=== PATIENT | male | born 1955 | race Caucasian/White ===

== ENCOUNTER → 2016-03-13 | Outpatient (CLI) | payer OTHER ==
[~2016-03-13] MED LIST: ACET-789 PO; LISI10TA; LISI40TA PO; PANT40TA2 PO; SIMV40TA4 PO; SUCR1TAB PO; VITAMINS
--- OUTSIDE RECORDS SUMMARY | 2016-03-13 08:46 | XMS REPORT | Continuity of Care Document ---
Author Author [facility] Organization [facility] Address Unknown Phone Unavailable Care Team Providers Care Supervisor Personnel Clerks Name Role Phone JR REVELES DO PCP Insurance Providers Payer Name Policy Number Subscriber Name [facility] [id number] Brant Bahena 18 Self / Same As Patient Advance Directives Directive Response Recorded Date/Time Advance Directives No 11/17/15 2:04pm Health Care Power of Agriscience Technology Instructor No 11/17/15 2:04pm Organ Donor Yes 11/17/15 2:04pm Resuscitation Status Full Code 11/17/15 2:04pm Problems No problem information available. Medications Current Home Medications Medication Dose Units Route Directions Days/Qty Instructions Start Date Lisinopril 40 Mg 40 Mg Oral Daily 11/17/15 Simvastatin 40 Mg 40 Mg Oral Bedtime 11/17/15 Sucralfate 1 Gm 1 Gm Oral Before Meals And At Bedtime 11/17/15 Acetaminophen With Codeine 1 Each 1 Each Oral Every 6 Hours as needed for Pain 11/17/15 Past Home Medications Medication Directions Ordered Status Lisinopril (Zestril) 10 Mg Tablet, 11/21/08 Discontinued Vitamins , 11/21/08 Discontinued Social History No social history. Hospital Discharge Instructions No hospital discharge instructions. Plan of Care Discharge Date 11/17/15 2:17pm Prescriptions See Medication Section Functional Status No functional status results. Allergies, Adverse Reactions, Alerts No known allergies. Immunizations No immunization records. Vital Signs Acute Vital Signs Vital Response Date/Time Height (Feet) 5 feet 11/17/2015 2:04pm Height (Inches) 11.00 inches 11/17/2015 2:04pm Height (Calculated Centimeters) 180.022724 cm 11/17/2015 2:04pm Weight (Pounds) 330 pounds 11/17/2015 2:04pm Weight (Ounces) 6.0 oz 11/17/2015 2:04pm Weight (Calculated Grams) 566185.581 gm 11/17/2015 2:04pm Weight (Calculated Kilograms) 149.892657 kilograms 11/17/2015 2:04pm Calculated BMI 46.02 11/17/2015 2:04pm Results No known relevant diagnostic tests, laboratory data and/or discharge summary. Procedures No known history of procedures. Encounters Encounter Location Arrival/Admit Date Discharge/Depart Date Attending Provider Departed Clinic [facility] 11/17/15 5:59am 11/17/15 2: 17pm JOHANA RODRIGUEZ MD
--- NOTE | 2016-03-15 09:22 | ECHOCARDIOGRAPHY REPORT ---
PROCEDURE PHYSICIAN: JES JUDGE DATE OF PROCEDURE: 03/13/2016 TWO DIMENSIONAL ECHOCARDIOGRAM REPORT PRIMARY PHYSICIAN: OTHER PHYSICIAN: REFERRING PHYSICIAN: Dr. Boothe ORDERING PHYSICIAN: INDICATION FOR THE PROCEDURE: 1. Coronary artery disease. 2. Hypertension. MEASUREMENTS DERIVED VALUES LV DIAMETER (LAX) NORMALS NORMALS Diastolic 5.5 (3.6-5.2) Eject. Fract. 50% (60%+/-6%) Systolic (2.3-3.9) Diastolic Vol. % Shortening (0.22-0.42) Systolic Vol. Aortic Root IVS THICKNESS Diastolic 1.2 (0.6-1.1) LVPW THICKNESS Diastolic 1.2 (0.6-1.1) LA DIAMETER Systolic 5.1 (2.1-3.7) FINDINGS: 1. Technical quality is good. 2. The left ventricle is normal in size with mild to moderate left ventricular hypertrophy noted diffusely. Systolic function appeared to be normal. Estimated ejection fraction 60%. Diastolic dysfunction is suggested by Doppler. Improvement compared to the study of 2008. 3. The left atrium is dilated. No clot or thrombus were seen within the left atrium. 4. The right atrium and right ventricle are normal in size. No clot or thrombus were seen within the right side. 5. Mitral valve is normal in morphology with mild mitral regurgitation noted by color Doppler flow. Doppler across the mitral valve showed equalization of E and A, which is suggestive of diastolic dysfunction. 6. Aortic valve is trileaflet with normal opening and closing pattern. No significant aortic stenosis or regurgitation was seen. 7. Tricuspid valve is normal in morphology, mild tricuspid regurgitation noted by color Doppler flow. Doppler across tricuspid valve estimated pulmonary artery pressure of 17+ right atrial pressure. 8. Pulmonic valve is functioning normally. 9. No pericardial effusion. IN CONCLUSION: 1. Normal left ventricular size with mild to moderate left ventricular hypertrophy. Normal systolic function. Anterior wall is erwin normally. Estimated ejection fraction 60%. Diastolic dysfunction is suggested by Doppler. 2. Left atrial dilatation. 3. Mild mitral and tricuspid regurgitation. 4. Estimated pulmonary artery pressure of 25 mmHg. Job ID: [id number] Dictated Date: 03/14/2016 15:02:49 Beam Worker Date: 03/15/2016 09:18:50 / hieu
== END ==
LOC: CARD 08:43
PROVIDERS: ATTEND Physician Assistant
DX: I25.10 Atherosclerotic heart disease of native coronary artery without angina pectoris (principal); I10 Essential (primary) hypertension; E78.2 Mixed hyperlipidemia; E66.9 Obesity, unspecified
CPT/HCPCS: 93306

== ENCOUNTER → 2016-04-17 | Outpatient (CLI) | payer OTHER ==
--- OUTSIDE RECORDS SUMMARY | 2016-04-17 10:23 | XMS REPORT | Continuity of Care Document ---
Author Author [facility] Organization [facility] Address Unknown Phone Unavailable Care Team Providers Care Cell Tower Climber Name Role Phone JR REVELES DO PCP Insurance Providers Payer Name Policy Number [facility]scriber Name [facility] [id number] Brant Bahena 18 Self / Same As Patient Advance Directives Directive Response Recorded Date/Time Advance Directives No 11/17/15 2:04pm Health Care Power of Cytology Teacher No 11/17/15 2:04pm Organ Donor Yes 11/17/15 [...] 11.00 inches 11/17/2015 2:04pm Height (Calculated Centimeters) 180.342936 cm 11/17/2015 2:04pm Weight (Pounds) 330 pounds 11/17/2015 2:04pm Weight (Ounces) 6.0 oz 11/17/2015 2:04pm Weight (Calculated Grams) 902982.581 gm 11/17/2015 2:04pm Weight (Calculated Kilograms) 149.505695 kilograms 11/17/2015 2:04pm Calculated BMI 46.02 11/17/2015 2:04pm Results No known relevant diagnostic tests, laboratory data and/or discharge summary. Procedures No known history of procedures. Encounters Encounter Location Arrival/Admit Date Discharge/Depart Date Attending Provider Departed Clinic [facility] 11/17/15 5:59am 11/17/15 2: 17pm JOHANA RODRIGUEZ MD
--- NOTE | 2016-04-17 12:06 | STRESS TEST ---
PROCEDURE PHYSICIAN: JES JUDGE DATE OF PROCEDURE: 04/17/2016 EXERCISE STRESS ECHOCARDIOGRAM REPORT: REFERRING PHYSICIAN: Dr. Boothe BASELINE HEART RATE: 73 BASELINE BLOOD PRESSURE: 120/80 BASELINE EKG: Sinus rhythm with no ischemic changes. IN SUMMARY: The patient started exercising with a baseline heart rate, blood pressure, EKG mentioned above. At minute 1, he started having intermittent right bundle branch block progressed into right bundle branch block, persisted during test. He was able to exercise for a total of 3 minutes on standard Sameer protocol, achieving maximum heart rate of 152, which is 95% of maximum expected heart rate. Early in recovery, the patient went back to intermittent right bundle branch block and then back to his baseline. Blood pressure at peak exercise was 200/120. Oxygen saturation was 93%. Echocardiographic images were acquired and reviewed in the parasternal long axis, parasternal short axis, apical 4 chamber and apical 2 chamber views. Review of the images showed normal left ventricular size with normal contractility. No ischemic changes. IN CONCLUSION: 1. Poor exercise tolerance a total of 3 minutes on standard Sameer protocol. Total of 4.6 METs, achieving 95% of maximum expected heart rate. 2. Intermittent right bundle branch block noted early in exercise and early in recovery, persistent right bundle branch block induced by exercise. 3. Severe hypertensive response to exercise, returned to baseline during recovery. Normal echocardiographic images with no ischemic changes. Job ID: [id number] Dictated Date: 04/17/2016 11:37:21 Carpentry Supervisor Date: 04/17/2016 12:00:17 / hieu
== END ==
LOC: CARD 10:21
PROVIDERS: ATTEND Internal Medicine Cardiovascular Disease
DX: I25.10 Atherosclerotic heart disease of native coronary artery without angina pectoris (principal); I10 Essential (primary) hypertension; E78.2 Mixed hyperlipidemia; E66.9 Obesity, unspecified

== ENCOUNTER → 2016-05-15 | Outpatient (CLI) | payer OTHER ==
--- OUTSIDE RECORDS SUMMARY | 2016-05-15 09:28 | XMS REPORT | Continuity of Care Document ---
Author Author [facility] Organization [facility] Address Unknown Phone Unavailable Care Team Providers Care Soap Inspector Name Role Phone JR REVELES DO PCP Insurance Providers Payer Name Policy Number Subscriber Name [facility] [id number] Brant Bahena 18 Self / Same As Patient Advance Directives Directive Response Recorded Date/Time Advance Directives No 11/17/15 2:04pm Health Care Power of Pulley Worker No 11/17/15 2:04pm Organ Donor Yes 11/17/15 [...] 11.00 inches 11/17/2015 2:04pm Height (Calculated Centimeters) 180.186422 cm 11/17/2015 2:04pm Weight (Pounds) 330 pounds 11/17/2015 2:04pm Weight (Ounces) 6.0 oz 11/17/2015 2:04pm Weight (Calculated Grams) 663838.581 gm 11/17/2015 2:04pm Weight (Calculated Kilograms) 149.435965 kilograms 11/17/2015 2:04pm Calculated BMI 46.02 11/17/2015 2:04pm Results No known relevant diagnostic tests, laboratory data and/or discharge summary. Procedures No known history of procedures. Encounters Encounter Location Arrival/Admit Date Discharge/Depart Date Attending Provider Departed Clinic [facility] 11/17/15 5:59am 11/17/15 2: 17pm JOHANA RODRIGUEZ MD
--- NOTE | 2016-05-15 09:56 | Diagnostic Imaging Report ---
PROCEDURE: CT abdomen and pelvis without contrast. TECHNIQUE: Multiple contiguous axial images were obtained through the abdomen and pelvis without the use of intravenous contrast. INDICATION: Left flank pain. COMPARISON: None. DISCUSSION: The visualized lung bases are unremarkable. Normal heart size. No pleural or pericardial fluid. The gallbladder is surgically absent. Postoperative changes of the stomach are noted. The liver, spleen, pancreas, and adrenal glands are unremarkable. No hydronephrosis. Nonobstructing right renal calculi measuring up to 6 mm. No ureteral stone or obstruction otherwise identified on this noncontrast exam. Urinary bladder and prostate are unremarkable. The appendix is normal. The large and small bowel loops appear within normal limits. Fat-containing ventral hernia with the hernia defect measuring 2.4 cm. No ascites or pathologically enlarged lymph nodes identified. No acute osseous abnormality identified. IMPRESSION: Nonobstructing right renal calculi. No hydronephrosis or ureteral stone identified. Dictated by: Dictated on workstation # [id number]
== END ==
LOC: RAD 09:25
PROVIDERS: ATTEND Nurse Practitioner Family
DX: R10.32 Left lower quadrant pain (principal)
CPT/HCPCS: 74176

== ENCOUNTER → 2017-11-05 | Outpatient (CLI) | payer OTHER ==
--- NOTE | 2017-11-05 12:33 | Diagnostic Imaging Report ---
INDICATION: Left flank pain. FINDINGS: Supine images of the abdomen are obtained. There is mild gaseous distention of small and large bowel however no transition point seen to indicate obstruction. There are calcifications projecting over the kidneys bilaterally with the largest on the right reaching 0.7 cm in the upper pole region. Upper pole calcification on the left reaches approximately 0.4 cm. No definite ureteric stone is identified however there is a small calcified phlebolith in the left hemipelvis. IMPRESSION: Bilateral renal calculi, greater on the right without other acute abnormality seen in the abdomen. Dictated by: Dictated on workstation # [id number]
== END ==
LOC: RAD 11:26
PROVIDERS: ATTEND Nurse Practitioner Family
DX: N20.0 Calculus of kidney (principal)
CPT/HCPCS: 74018

== ENCOUNTER 2019-07-05 21:48 | Emergency (ER) | payer OTHER ==
[~2019-07-05] VITALS: Ht 177 cm; Wt 151.6 kg
[~2019-07-05 21:48] MED LIST changes: +SIMV40TA25 PO; -SIMV40TA4 PO
[2019-07-05] MEDS ORDERED: NS IV 1000 ML 1,000 ML IV SCH (22:10)
[2019-07-05] MEDS ORDERED: ONDANSETRON 4 MG/2 ML (SDV) Z0FRAN IVP ONE ×2 (22:15→23:00)
[2019-07-05] MEDS ORDERED: fentaNYL INJECTION 100 MCG/2 ML AMP IVP ONE (22:15)
--- NOTE | 2019-07-05 22:16 | ED Back Pain ---
General Stated Complaint: LOWER BACK PAIN Source of Information: Patient Exam Limitations: No Limitations History of Present Illness Date Seen by Provider: July 05, 2019 Time Seen by Provider: 22:05 Initial Comments Patient presents ER by private conveyance with chief complaint of pain in his right flank and back radiating down to his right groin since sometime this afternoon. He has a history of kidney stones and says this is consistent with it. He denies fevers chills cough shortness of breath. He's having some nausea but no vomiting. He took a Tylenol 3 couple hours ago with no relief of pain. Use the Tylenol 3 for chronic back and shoulder pain. He is known to [facility] for primary care. Allergies and Home Medications Allergies Coded Allergies: No Known Drug Allergies (Verified , 11/19/15) Home Medications Acetaminophen with Codeine 1 Each Tablet, 1 EACH PO Q6H PRN for PAIN, (Reported) Cephalexin 500 Mg Capsule, 500 MG PO BID Prescribed by: GO FREITAS on 07/05/192257 Hydrocodone/Acetaminophen 1 Each Tablet, 1-2 EACH PO Q4H PRN for PAIN- BREAKTHROUGH Prescribed by: GO FREITAS on 07/05/192257 Lisinopril 40 Mg Tablet, 40 MG PO DAILY, (Reported) Ondansetron 4 Mg Tab.rapdis, 4 MG PO Q6H PRN for NAUSEA-1ST LINE Prescribed by: GO FREITAS on 07/05/192257 Pantoprazole Sodium 40 Mg Tablet.dr, 40 MG PO DAILY Prescribed by: JOHANA RODRIGUEZ on 11/19/15 1254 Simvastatin 40 Mg Tablet, 40 MG PO HS, (Reported) Sucralfate 1 Gm Tablet, 1 GM PO ACHS, (Reported) Tamsulosin HCl 0.4 Mg Cap, 0.4 MG PO DAILY Prescribed by: GO FREITAS on 07/05/192257 Patient Home Medication List Home Medication List Reviewed: Yes Review of Systems Constitutional: No chills, No diaphoresis EENTM: No ear discharge, No ear pain Respiratory: No cough, No short of breath Cardiovascular: No chest pain, No edema Gastrointestinal: No abdominal pain, No constipation, No nausea, No vomiting Genitourinary: see HPI; No discharge, No dysuria Musculoskeletal: see HPI, back pain; No joint pain All Other Systems Reviewed Negative Unless Noted: Yes Past Tcwbamz-Ohqezt-Wpxekd Hx Patient Social History Alcohol Use: Denies Use Recreational Drug Use: No Smoking Status: Never a Smoker Recent Foreign Travel: No Contact w/Someone Who Travel: No Immunizations Up To Date Date of Pneumonia Vaccine: Dec 18, 2012 Past Medical History Reproductive Disorders: No Physical Exam Vital Signs Vital Signs - First Documented 07/05/19 22:06 Temp 36.5 Pulse 83 Resp 20 B/P (MAP) 143/89 (107) O2 Delivery Room Air Capillary Refill : Height, Weight, BMI Height: 5'11.00" Weight: 330lbs. 6.0oz. 149.688998ue; 46.02 BMI Method: General Appearance: Moderate Distress, Obese HEENT: TMs Normal, Pharynx Normal, Moist Mucous Membranes Neck: Full Range of Motion, Normal Inspection Cardiovascular: Regular Rate, Rhythm, Normal Peripheral Pulses Respiratory: Lungs Clear, Normal Breath Sounds, No Accessory Muscle Use, No Respiratory Distress Peripheral Pulses: 2+ Dorsalis Pedis (R), 2+ Left Dors-Pedis (L) Gastrointestinal: Normal Bowel Sounds, Non Tender, Soft Back: No Vertebral Tenderness, CVA Tenderness (R) Extremity: Normal Capillary Refill, Non Tender, No Calf Tenderness Neurologic/Psychiatric: Alert, Oriented x3 Skin: Normal Color, Warm/Dry Progress/Results/Core Measures Results/Orders Lab Results Laboratory Tests Test 07/05/19 22:10 Range/Units White Blood Count 12.6 H 4.3-11.0 10^3/uL Red Blood Count 4.82 4.35-5.85 10^6/uL Hemoglobin 12.0 L 13.3-17.7 G/DL Hematocrit 38 L 40-54 % Mean Corpuscular Volume 80 80-99 FL Mean Corpuscular Hemoglobin 25 25-34 PG Mean Corpuscular Hemoglobin Concent 31 L 32-36 G/DL Red Cell Distribution Width 16.4 H 10.0-14.5 % Platelet Count 224 130-400 10^3/uL Mean Platelet Volume 9.6 7.4-10.4 FL Neutrophils (%) (Auto) 65 42-75 % Lymphocytes (%) (Auto) 22 12-44 % Monocytes (%) (Auto) 9 0-12 % Eosinophils (%) (Auto) 3 0-10 % Basophils (%) (Auto) 0 0-10 % Neutrophils # (Auto) 8.2 H 1.8-7.8 X 10^3 Lymphocytes # (Auto) 2.8 1.0-4.0 X 10^3 Monocytes # (Auto) 1.2 H 0.0-1.0 X 10^3 Eosinophils # (Auto) 0.4 H 0.0-0.3 10^3/uL Basophils # (Auto) 0.0 0.0-0.1 10^3/uL Sodium Level 139 135-145 MMOL/L Potassium Level 4.0 3.6-5.0 MMOL/L Chloride Level 106 98-107 MMOL/L Carbon Dioxide Level 19 L 21-32 MMOL/L Anion Gap 14 5-14 MMOL/L Blood Urea Nitrogen 23 H 7-18 MG/DL Creatinine 1.08 0.60-1.30 MG/DL Estimat Glomerular Filtration Rate > 60 BUN/Creatinine Ratio 21 Glucose Level 133 H 70-105 MG/DL Calcium Level 8.5 8.5-10.1 MG/DL Corrected Calcium 8.6 8.5-10.1 MG/DL Total Bilirubin 0.4 0.1-1.0 MG/DL Aspartate Amino Transf (AST/SGOT) 17 5-34 U/L Alanine Aminotransferase (ALT/SGPT) 18 0-55 U/L Alkaline Phosphatase 133 40-136 U/L Total Protein 7.1 6.4-8.2 GM/DL Albumin 3.9 3.2-4.5 GM/DL My Orders Orders - GO FREITAS Ed Iv/Invasive Line Start (07/05/19 22:10) Ns Iv 1000 Ml (Sodium Chloride 0.9%) (07/05/19 22:10) Ct Abd/Pelvis Wo(Kidney Stone) (07/05/19 22:10) Cbc With Automated Diff (07/05/19 22:10) Comprehensive Metabolic Panel (07/05/19 22:10) Ua Culture If Indicated (07/05/19 22:10) Fentanyl Injection (Sublimaze Injection (07/05/19 22:15) Ondansetron Injection (Zofran Injectio (07/05/19 22:15) Ketorolac Injection (Toradol Injection) (07/05/19 23:00) Rx-Hydrocodone/Apap 5-325 Mg (Rx-Vicodin (07/05/19 23:00) Hydromorphone Injection (Dilaudid Inject (07/05/19 23:00) Ondansetron Injection (Zofran Injectio (07/05/19 23:00) Medications Given in ED Current Medications Medications Dose Ordered Sig/Mary Route Start Time Stop Time Status Last Admin Dose Admin Acetaminophen/ Hydrocodone Bitart 1 ea Q4H PRN PO 07/05/19 23:00 07/05/19 23:09 1 EA Fentanyl Citrate 75 mcg ONCE ONCE IVP 07/05/19 22:15 07/05/19 22:16 DC 07/05/19 22:18 75 MCG Hydromorphone HCl 0.5 mg ONCE ONCE IV 07/05/19 23:00 07/05/19 23:02 DC 07/05/19 23:07 0.5 MG Ketorolac Tromethamine 15 mg ONCE ONCE IVP 07/05/19 23:00 07/05/19 23:02 DC 07/05/19 23:06 15 MG Ondansetron HCl 4 mg ONCE ONCE IVP 07/05/19 22:15 07/05/19 22:16 DC 07/05/19 22:17 4 MG Ondansetron HCl 8 mg ONCE ONCE IVP 07/05/19 23:00 07/05/19 23:02 DC 07/05/19 23:07 8 MG Vital Signs/I&O 07/05/19 22:06 Temp 36.5 Pulse 83 Resp 20 B/P (MAP) 143/89 (107) O2 Delivery Room Air Progress Progress Note #1: Time: 22:15 Progress Note Patient says is unable to produce any urine at this time. Plans to go ahead and give him a dose of fentanyl, Zofran liter of fluids and get a CT of his abdomen and pelvis. Some basic labs ordered. He has aseptic vital signs. Suspect kidney stone. Progress Note #2: Time: 22:47 Progress Note Patient's pain is not completely controlled. We can give him some hydrocodone as well as a small dose of 15 mg Toradol. He has had cardiac bypass in the past. He is not on blood thinners. We would only do a one-time NSAID. Progress Note #3: Time: 23:34 Progress Note Patient's pain was much better under control so he called his son a modicum give him a ride. Diagnostic Imaging Diagonstic Imaging: CT (without IV contrast) Plain Films/CT/US/NM/MRI: abdomen, pelvis Comments 3-4 mm ureteral calculi about 1 cm above the ureterovesical junction. Nonobstructing renal stones noted on the right. Reviewed: Reviewed Night Hawk Study, Reviewed by Me Departure Impression Primary Impression: Ureteral calculus, right Disposition: 01 HOME, SELF-CARE Condition: Stable Departure-Patient Inst. Decision time for Depature: 23:00 Referrals: NO,LOCAL PHYSICIAN (PCP/Family) Primary Care Physician Patient Instructions: Kidney Stones (DC), How to Strain Your Urine Add. Discharge Instructions: Hydrocodone one to 2 tablets every 4 hours as needed for pain control. Ondansetron one tablet every 6 hours as needed for nausea or vomiting. Drink lots of fluids. Keflex one capsule twice a day for the next 7 days to prevent urinary tract infection. Flomax one capsule at night for the next 7 days to help pass the kidney stone. Strain your urine to try and capture the stone. It is not unusual to have pain and nausea for up to one to 2 days after passing a kidney stone. If you're unable to pass it by Sunday then please call Dr. Howard, urology for further intervention. Scripts Tamsulosin HCl (Flomax) 0.4 Mg Cap 0.4 MG PO DAILY for 7 Days, #7 CAP 0 Refills Prov: GO FREITAS 07/05/19 Cephalexin (Keflex) 500 Mg Capsule 500 MG PO BID for 7 Days, #14 CAP 0 Refills Prov: GO FREITAS 07/05/19 Hydrocodone/Acetaminophen (Hydrocodone-Acetamin 5-325 mg) 1 Each Tablet 1-2 EACH PO Q4H PRN for PAIN-BREAKTHROUGH, #20 TAB 0 Refills Prov: GO FREITAS 07/05/19 Ondansetron (Ondansetron Odt) 4 Mg Tab.rapdis 4 MG PO Q6H PRN for NAUSEA-1ST LINE, #12 TAB 0 Refills Prov: GO FREITAS 07/05/19 GO FREITAS July 05, 2019 22:16
[2019-07-05 22:30] LABS: BASOPHILS % (AUTO) 0 % (0-10); EOSINOPHILS # (AUTO) 0.4 10^3/uL (0.0-0.3); EOSINOPHILS % (AUTO) 3 % (0-10); HEMATOCRIT 38 % (40-54); LYMPHOCYTES # (AUTO) 2.8 X 10^3 (1.0-4.0); LYMPHOCYTES % (AUTO) 22 % (12-44); MEAN CORPUSCULAR HEMOGLOBIN 25 PG (25-34); MEAN CORPUSCULAR HGB CONC 31 G/DL (32-36); MEAN CORPUSCULAR VOLUME 80 FL (80-99); MEAN PLATELET VOLUME 9.6 FL (7.4-10.4); MONOCYTES # (AUTO) 1.2 X 10^3 (0.0-1.0); MONOCYTES % (AUTO) 9 % (0-12); NEUTROPHILS # (AUTO) 8.2 X 10^3 (1.8-7.8); NEUTROPHILS % (AUTO) 65 % (42-75); PLATELET COUNT 224 10^3/uL (130-400); RED CELL DISTRIBUTION WIDTH 16.4 % (10.0-14.5); WHITE BLOOD COUNT 12.6 10^3/uL (4.3-11.0)
[2019-07-05 22:34] LABS: ALBUMIN 3.9 GM/DL (3.2-4.5)
[2019-07-05 22:35] LABS: CHLORIDE 106 MMOL/L (98-107); SODIUM 139 MMOL/L (135-145)
[2019-07-05 22:36] LABS: CALCIUM 8.5 MG/DL (8.5-10.1)
[2019-07-05 22:37] LABS: GLUCOSE 133 MG/DL (70-105); TOTAL PROTEIN 7.1 GM/DL (6.4-8.2)
[2019-07-05 22:38] LABS: CARBON DIOXIDE 19 MMOL/L (21-32)
[2019-07-05 22:39] LABS: BILIRUBIN,TOTAL 0.4 MG/DL (0.1-1.0)
[2019-07-05 22:40] LABS: ALKALINE PHOSPHATASE 133 U/L (40-136)
[2019-07-05 22:41] LABS: CREATININE SERUM 1.08 MG/DL (0.60-1.30); GFR ESTIMATED > 60
[2019-07-05 22:42] LABS: BUN/CREATININE RATIO 21
[2019-07-05 22:43] LABS: ALANINE AMINOTRANSFERASE 18 U/L (0-55)
[2019-07-05] MEDS ORDERED: TMSL.4C PO (22:58)
[2019-07-05] MEDS ORDERED: CEPH-507 PO (22:58)
[2019-07-05] MEDS ORDERED: HYDR-83 PO (22:58)
[2019-07-05] MEDS ORDERED: ONDA4TAB11 PO (22:58)
[2019-07-05] MEDS ORDERED: HYDROmorphone 2 MG/ML VIAL (DILAUDID) IV ONE (23:00)
[2019-07-05] MEDS ORDERED: KETOROLAC 30 MG/ML VIAL IVP ONE (23:00)
[2019-07-05] MEDS ORDERED: RX-HYDROCODONE/APAP 5/325 MG #4 TAB PK PO PRN (23:00)
[2019-07-05 23:30] VITALS: BP 135/87
--- NOTE | 2019-07-06 07:24 | Diagnostic Imaging Report ---
PROCEDURE: CT urinary tract, rule out kidney stone. TECHNIQUE: Multiple contiguous axial images were obtained through the abdomen and pelvis without the use of intravenous contrast. Auto Exposure Controls were utilized during the CT exam to meet ALARA standards for radiation dose reduction. INDICATION: Right flank pain The previous exam of 05/15/2016 noted nonobstructive calculi involving the right kidney but failed to show any sign of obstruction of either collecting system. On the images through the low pelvis of this exam however there is now a 4.8 mm calculus in the distal right ureter just proximal to the ureterovesical junction (image 115 of 143) the right ureter and right renal pelvis are slightly dilated consistent with partial obstruction. There are still a few nonobstructive calculi within the right kidney. There is no evidence for nephrolithiasis on the left and there is no sign of obstruction of the left collecting system. There is no acute abnormality of the abdomen or pelvis noted otherwise. The appendix was visualized and is not abnormally thickened. There is no pelvic mass or free fluid collection noted. There are a few diverticula in sigmoid colon but there is no evidence for acute diverticulitis. The urinary bladder and prostate gland are grossly unremarkable. The previous exam did note a ventral hernia with portions of the mesenteric fat extending through the defect in the anterior abdominal wall. In the interval since the prior exam the patient has undergone a surgical procedure. There is no evidence for recurrent hernia. The liver, spleen, pancreas, adrenals, aorta and inferior vena cava show no sign of an acute abnormality. As noted on the prior exam the gallbladder is surgically absent. There are also postsurgical changes involving the stomach. The lung bases are clear. Coronary calcifications are again noted. The bone windows show no evidence for a fracture or for a destructive lesion. There is degenerative disc and bone disease throughout the lower thoracic and lumbar spine. IMPRESSION: 1. There is partial obstruction of the right collecting system due to a four-point and calculus near the ureterovesical junction. There are also nonobstructive calculi within the right kidney. 2. There is no acute abnormality of the abdomen and pelvis noted otherwise. 3. There has been interval repair of the ventral hernia seen on the prior exam. There is no evidence of a recurrent hernia. Dictated by: Dictated on workstation # [id number]
== END 2019-07-05 23:32 | disposition home or self-care (01) ==
LOC: EDUNIT# 21:48 → ER 21:50
DX: N20.1 Calculus of ureter (principal)
CPT/HCPCS: 36415; 74176; 80053; 85025

== ENCOUNTER 2021-02-22 10:42 | Outpatient (CLI) | payer OTHER ==
[~2021-02-22] VITALS: Ht 177.8 cm; Wt 136.1 kg
[~2021-02-22 10:42] MED LIST changes: +ACHD5005 PO; +CEPH-507 PO; -LISI40TA PO; +LISI40TA9 PO; +ONDA4TAB11 PO; +TMSL.4C PO
[2021-02-22 10:53] VITALS: BP 115/80
[2021-02-22] MEDS ORDERED: diphenhydrAMINE 50 MG/ML INJ (BENADRYL) IV PRN (11:00)
[2021-02-22] MEDS ORDERED: BAMLANIVIMAB 700 MG/ETESEVIMAB 1,400 MG IN NS IV ONE ×3 (11:00)
[2021-02-22] MEDS ORDERED: EPINEPHrine INJECTION 1 MG/ML AMP IM PRN (11:00)
[2021-02-22] MEDS ORDERED: ACETAMINOPHEN 500 MG TAB (TYLENOL) PO PRN (11:00)
[2021-02-22] MEDS ORDERED: ONDANSETRON 4 MG/2 ML (SDV) Z0FRAN IV PRN (11:00)
[2021-02-22 12:35] VITALS: BP 122/74
== END 2021-02-22 12:35 | disposition home or self-care (01) ==
LOC: INFUSION 10:42
PROVIDERS: ATTEND Nurse Practitioner Family
DX: U07.1 COVID-19 (principal)